=== PATIENT | male | born 1970 | race Hispanic/Latino ===

== ENCOUNTER → 2019-02-14 | Outpatient (CLI) | payer BC ==
[~2019-02-14] MED LIST: BISOPROLOL-HCT1 EAC2 PO; FERROUS SULFAT324 MG; LOSARTAN POTASS25 MG PO; OMEPRAZOLE40 MG PO
== END ==
LOC: RAD 08:33
PROVIDERS: ATTEND Family Medicine
DX: R94.31 Abnormal electrocardiogram [ECG] [EKG] (principal); I10 Essential (primary) hypertension
CPT/HCPCS: 93306

== ENCOUNTER 2022-03-13 04:51 | Observation (INO) | payer BC, OTHER ==
[~2022-03-13] VITALS: Ht 170.2 cm; Wt 100.0 kg
[~2022-03-13 04:51] MED LIST changes: -FERROUS SULFAT324 MG; +FERROUS SULFAT324 MG PO
[2022-03-13 05:13] LABS: BASOPHILS # (AUTO) 0.1 (0.0-0.1); BASOPHILS % 1.4 % (0.0-1.0); EOSINOPHILS # (AUTO) 0.3 (0.0-0.4); EOSINOPHILS % 5.2 % (0.0-6.0); HEMATOCRIT 49.3 % (38.2-49.6); HEMOGLOBIN 16.5 g/dL (14.0-18.0); LYMPHOCYTES # (AUTO) 2.3 (1.0-3.2); LYMPHOCYTES % 35.4 % (18.0-39.1); MEAN CORPUSCULAR HEMOGLOBIN 31.1 pg (28-32); MEAN CORPUSCULAR HGB CONC 33.5 g/dL (31-35); MONOCYTES # (AUTO) 0.6 (0.2-0.8); MONOCYTES % 9.6 % (4.4-11.3); NEUTROPHILS # (AUTO) 3.1 (2.1-6.9); NEUTROPHILS % 47.9 % (38.7-80.0); PLATELET COUNT 252 x10e3/uL (140-360); RED CELL DISTRIBUTION WIDTH 12.6 % (11.7-14.4)
[2022-03-13 05:38] LABS: ALANINE AMINOTRANSFERASE 133 IU/L (0-55); ALBUMIN 4.1 g/dL (3.5-5.0); ALBUMIN/GLOBULIN RATIO 1.2 (0.8-2.0); ALKALINE PHOSPHATASE 82 IU/L (40-150); ANION GAP 11.7 mmol/L (8-16); BLOOD UREA NITROGEN 9 mg/dL (7-26); BUN/CREATININE RATIO 9 (6-25); CALCIUM 9.1 mg/dL (8.4-10.2); CARBON DIOXIDE 26 mmol/L (22-29); CHLORIDE 105 mmol/L (98-107); CREATINE KINASE 186 IU/L (30-200); CREATININE, SERUM 1.03 mg/dL (0.72-1.25); GLUCOSE 151 mg/dL (74-118); POTASSIUM 3.7 mmol/L (3.5-5.1); SODIUM 139 mmol/L (136-145)
[2022-03-13 06:31] LABS: AMPHETAMINES SCREEN,URINE NEGATIVE (NEGATIVE); BENZODIAZEPINES SCREEN,URINE NEGATIVE (NEGATIVE); CLARITY,URINE CLEAR (CLEAR); COLOR,URINE YELLOW (YELLOW); KETONES,URINE TRACE (NEGATIVE); LEUKOCYTE ESTERASE ,URINE NEGATIVE (NEGATIVE); NITRITE,URINE NEGATIVE (NEGATIVE); PHENCYCLIDINE SCREEN,URINE NEGATIVE (NEGATIVE); PROTEIN,URINE DIPSTICK NEGATIVE (NEGATIVE); URINE UROBILINOGEN 0.2 mg/dL (0.2 - 1)
[2022-03-13 06:53] LABS: BACTERIA,URINE FEW /HPF; EPITHELIAL CELLS,URINE RARE /LPF; WBC,URINE (MAN) 0-5 /HPF (0-5)
[2022-03-13] MEDS ORDERED: DEXTROSE 50% SYRINGE 50 ML IV PRN (07:15)
[2022-03-13] MEDS ORDERED: CRESTOR10 MG PO (07:28)
[2022-03-13] MEDS ORDERED: EZETIMIBE10 MG PO (07:28)
[2022-03-13] MEDS ORDERED: KAPSPARGO SPRI100 MG PO (07:28)
[2022-03-13] MEDS ORDERED: METFORMIN HCL500 MG PO (07:28)
[2022-03-13 09:45] VITALS: BP 140/89
[2022-03-13 09:50] VITALS: BP 140/89
[2022-03-13 15:55] VITALS: BP 119/83
[2022-03-13 20:00] VITALS: BP 140/94
[2022-03-13 21:54] VITALS: BP 140/94
[2022-03-13] MEDS: CRESTOR 10MG PO SCH (22:21)
[2022-03-13] MEDS ORDERED: SODIUM CHLORIDE 0.9% 100 ML ONE (23:34)
[2022-03-13] MEDS ORDERED: IOPAMIDOL 370 MG/ML 100 ML INFUS..BTL INJ ONE (23:34)
[2022-03-14] VITALS (8 sets, daily range): BP systolic 117–132; BP diastolic 73–87
[2022-03-14 06:35] LABS: BASOPHILS # (AUTO) 0.1 (0.0-0.1); BASOPHILS % 1.1 % (0.0-1.0); EOSINOPHILS # (AUTO) 0.3 (0.0-0.4); EOSINOPHILS % 3.7 % (0.0-6.0); HEMATOCRIT 48.5 % (38.2-49.6); HEMOGLOBIN 16.1 g/dL (14.0-18.0); LYMPHOCYTES # (AUTO) 2.2 (1.0-3.2); LYMPHOCYTES % 31.4 % (18.0-39.1); MEAN CORPUSCULAR HEMOGLOBIN 31.4 pg (28-32); MEAN CORPUSCULAR HGB CONC 33.2 g/dL (31-35); MEAN CORPUSCULAR VOLUME 94.5 fL (81-99); MONOCYTES # (AUTO) 0.7 (0.2-0.8); MONOCYTES % 9.4 % (4.4-11.3); NEUTROPHILS # (AUTO) 3.8 (2.1-6.9); NEUTROPHILS % 53.8 % (38.7-80.0); PLATELET COUNT 248 x10e3/uL (140-360); RED BLOOD COUNT 5.13 x10e6/uL (4.3-5.7); RED CELL DISTRIBUTION WIDTH 12.5 % (11.7-14.4)
[2022-03-14 07:03] LABS: ALBUMIN 3.6 g/dL (3.5-5.0); ANION GAP 13.1 mmol/L (8-16); CALCIUM 9.1 mg/dL (8.4-10.2); CREATININE, SERUM 0.99 mg/dL (0.72-1.25); POTASSIUM 4.1 mmol/L (3.5-5.1)
[2022-03-14 07:41] LABS: CHOL/HDL RATIO 3.5 (3.9-4.7)
[2022-03-14] MEDS ORDERED: ASPIRIN 81 MG CHEW TAB PO SCH (09:00)
[2022-03-14] MEDS ORDERED: CLOPIDOGREL BISULFATE 75 MG TAB PO SCH (09:00)
[2022-03-14] MEDS ORDERED: IOPAMIDOL 370 MG/ML 100 ML INFUS..BTL INJ ONE (18:29)
[2022-03-14] MEDS: CRESTOR 10MG PO SCH (21:00)
== END 2022-03-14 22:25 | disposition home or self-care (01) ==
LOC: ER 05:13 → INTOOBSV 07:06 → ERHOLD 07:06 → MED/SURG2 10:02
PROVIDERS: ADMIT Family Medicine; ATTEND Family Medicine
DX: I65.22 Occlusion and stenosis of left carotid artery (principal); R29.818 Other symptoms and signs involving the nervous system; I10 Essential (primary) hypertension; E11.65 Type 2 diabetes mellitus with hyperglycemia; E78.5 Hyperlipidemia, unspecified; K76.0 Fatty (change of) liver, not elsewhere classified; Z90.49 Acquired absence of other specified parts of digestive tract; Z87.11 Personal history of peptic ulcer disease; F10.10 Alcohol abuse, uncomplicated; Y90.0 Blood alcohol level of less than 20 mg/100 ml; K75.81 Nonalcoholic steatohepatitis (NASH); E78.1 Pure hyperglyceridemia; Z72.0 Tobacco use
CPT/HCPCS: 36415 ×2; 70450; 70496; 70498; 70551; 71045; 80053 ×2; 80061; 80307; 80320; 81001; 82140; 82550; 82553; 82948 ×2; 84484; 85025 ×2; 93005; 93306; 97116; 97161; 99284; G0378 ×2; J7050; Q9967 ×2; U0002